=== PATIENT | male | born 1960 | race American Indian/Alaskan Native ===

== ENCOUNTER 2017-06-09 09:00 | Day surgery (SDC) | payer OTHER ==
[2017-03-02 11:15] VITALS: BMI 26.4
[2017-06-09 10:00] VITALS: RESP 18
--- NOTE | 2017-06-09 11:23 | CP.SDSHP ---
Same Day Surgery H & P - History Proposed Procedure: US guided FNA of right and left thyroid nodules Pre-Op Diagnosis: Thyroid nodules - Allergies Allergies: Allergies No Known Allergies Allergy (Unverified 02/01/14 15:49) - Physical Exam Vital Signs: Vital Signs 06/09/17 09:32 Temperature 97.2 F L Pulse Rate 60 Respiratory 18 Rate Blood Pressure 167/90 H O2 Sat by Pulse 99 Oximetry Mental Status: Alert & Oriented x3 Neuro: WNL Heart: WNL - Impression Impression: Pt with right and left thyroid nodules. Plan US guided FNA of right and left thyroid nodules. Pt. Evaluated Today:Candidate for Anesthesia & Procedure: No - Date & Time Date: 06/09/17 Time: 11:00 Short Stay Discharge - Short Stay Discharge Admitting Diagnosis/Reason for Visit: THYROID NODULE Disposition: HOME/ ROUTINE
--- NOTE | 2017-06-09 11:25 | PCM.SURG1 ---
Surgeon's Initial Post Op Note - Surgeon's Notes Surgeon: Reyes Lyon MD Director Of Community Services: NONE Type of Anesthesia: Local Pre-Operative Diagnosis: Thyroid nodules Operative Findings: Bilateral thyroid nodules Post-Operative Diagnosis: Thyroid nodules Operation Performed: US guided FNA of right and left thyroid nodules Specimen/Specimens Removed: 25 g FNA x 4 passes per nodule Estimated Blood Loss: EBL {In ML}: 0 Blood Products Given: N/A Drains Used: No Drains Post-Op Condition: Good Date of Surgery/Procedure: 06/09/17 Time of Surgery/Procedure: 11:25
[2017-06-09 11:41] VITALS: BP 165/90; PULSE 64; TEMP 97.3; O2SAT 100
--- NOTE | 2017-06-09 14:39 | US ---
PROCEDURE: Date of Procedure: 06/09/2017 PROCEDURE: 1. Ultrasound guided FNA of left thyroid nodule, CPT 43519 2. Ultrasound guided FNA of RIGHT thyroid nodule, 3. Ultrasound guidance for FNA, 13172 Medications: 4cc 1% Lidocaine HISTORY: Enlarged thyroid nodules. TECHNIQUE: Following informed consent and procedure time-out, a limited ultrasound patient's neck confirmed the presence of a 2.1 cm complex solid left thyroid nodule. Also present is a complex, mixed solid and cystic right thyroid nodule measuring 2.5 cm. After the patient's neck was prepped and draped in the usual sterile fashion, the skin was anesthetized with 1% lidocaine. Ultrasound-guided fine needle aspiration was then performed of the dominant left thyroid nodule. A total of 4 passes were made into the nodule with 25 gauge needle under ultrasound guidance. The FNA specimen was sent for routine pathology. Ultrasound guided FNA was then performed of the dominant right thyroid nodule. Again 4 passes were made into the nodule with 25 gauge needle. The FNA specimen was sent for routine pathology. Post biopsy ultrasound showed no hematoma. IMPRESSION: Ultrasound-guided FNA of the dominant right and left thyroid nodules.
== END 2017-06-09 11:46 | disposition home or self-care (01) ==
LOC: C.SPRAD 09:00
PROVIDERS: ATTEND Radiology Vascular & Interventional Radiology
DX: E04.1 Nontoxic single thyroid nodule (principal)